=== PATIENT | male | born 1980 | race Caucasian/White ===

== ENCOUNTER 2021-07-29 15:54 | Emergency (ER) | payer BC, SELFPAY ==
[2021-07-29 15:59] VITALS: BP 145/89; PULSE 57; RESP 14; TEMP 36.8; O2SAT 99; BMI 24.3
[2021-07-29 16:09] VITALS: BP 145/89; PULSE 57; RESP 14; TEMP 36.8
--- NOTE | 2021-07-29 16:15 | [facility]H.EDUTC ---
[facility] [place] Clinical Impression: Skin infection Disposition: Home, Self-Care Condition on Discharge: Good Instructions: DI for Cellulitis -- Adult, Trimethoprim/Sulfamethoxazole (Alternative Therapy), Cellulitis, Cephalexin Additional Instructions: *Start antibiotic(s) immediately and be sure to take as ordered for the FULL length of time although you may be feeling better or start to see improvement in the next 24-48 hours *Monitor closely. Outlined redness so that you can monitor easier. Follow up immediately for new or worsening symptoms including but not limited to redness, swelling, streaking from site fever or chills. *Warm compress 15 minutes 3-4 times day *Never squeeze or pop these on your own. Seek immediate medical attention next time this occurs *Monitor Temp. Tylenol every 4 hours as needed and ibuprofen every 6 hours as needed (as long as your primary care doctor has told you that it is ok to take both. For fever, aches, pain. ER if no less that 101 despite Tylenol and ibuprofen Follow up with your family doctor/primary care physician in the next 48-72 hours if no improvement Wear loose shoes like Crocs or something that will not rub the back of your foot Follow up with Your Family Doctor if this does not improve or any worsening of symptoms or redness Straight to ER if any life threatening symptoms Pad heel of shoe to keep from rubbing FOllow up with Podiatry if symptoms continue to worsen Prescriptions: Sulfamethoxazole/Trimethoprim [Bactrim DS tablet] 1 each PO BID 7 Days #14 tab Transmission Status: Received by [facility] cephALEXin [cephALEXin 500mg capsule*] 500 mg PO Q6H 7 Days #28 cap Transmission Status: Received by [facility] Mupirocin Calcium [Mupirocin 2% Cream 15gm] 1 applicatio TP TID #15 gm Transmission Status: Received by [facility] Referrals: Perry Wheat [Primary Care Provider] - As needed Amina Encarnacion DPM [Staff Physician] - Mandy Pathak APRN [Nurse Practitioner] - Time of Disposition: 16:25 Medical Decision Making - Stef Inquiry Pt receiving controlled substance: No Stef was queried for this patient: No Vital Signs: 07/29/21 15:59 07/29/21 16:09 Temperature 98.2 F 98.2 F Temperature Source Oral Pulse Rate 57 L Pulse Rate [Left] 57 L Respiratory Rate 14 14 Blood Pressure 145/89 H Blood Pressure [Right Arm] 145/89 H Blood Pressure Mean [Right Arm] 107 02 Sat by Pulse Oximetry 99 [facility] UTC HPI - General Stated complaint: irritated blister on right foot Time Seen by Provider: 07/29/21 16:15 Mode of Arrival: Ambulatory Source of Information: Patient Limitations: No Limitations Description of Symptoms (Recalled from Triage Doc. by RN): pt refs soccer and the back of his cleat rubbed a blister onto the back of his heel about the size of a quarter. the blister is on the R heel and just isn't getting better according to the pt. 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 and his shoes rubbed a blister on the back of his right heel area States that since then the blister has popped but now his heel is red and warm to the touch and today he noticed it looked like it was spreading on the back of his foot so he came in to get it checked out - Related Data Previous Rx's Medication Instructions Recorded Mupirocin Calcium [Mupirocin 2% 1 applicatio TP TID #15 gm 07/29/21 Cream 15gm] Sulfamethoxazole/Trimethoprim 1 each PO BID 7 Days #14 tab 07/29/21 [Bactrim DS tablet] cephALEXin [cephALEXin 500mg 500 mg PO Q6H 7 Days #28 cap 07/29/21 capsule*] Allergies Allergy/AdvReac Type Severity Reaction Status Date / Time No Known
== END 2021-07-29 16:46 | disposition home or self-care (01) ==
PROVIDERS: Emergency Provider Nurse Practitioner; PCP Family Medicine
DX: S90.821A Blister (nonthermal), right foot, initial encounter (principal)
CPT/HCPCS: 99202; G0463

== ENCOUNTER → 2022-04-14 07:48 | Outpatient (CLI) | payer BC, SELFPAY | PROVIDERS: PCP Family Medicine; Visit Provider Family Medicine | DX: Z20.822 Contact with and (suspected) exposure to COVID-19 (principal) | CPT/HCPCS: C9803; U0003; U0005 ==